=== PATIENT | female | born 1965 | race Caucasian/White ===

== ENCOUNTER 2017-01-07 09:46 | Emergency (ER) | payer MEDICARE, OTHER ==
[~2017-01-07] VITALS: Ht 154.9 cm; Wt 102.0 kg
[2017-01-07 09:57] VITALS: BP 182/128; PULSE 82; RESP 18; TEMP 98.2; O2SAT 97
[2017-01-07] MEDS ORDERED: LABETALOL HCL 100 MG/20 ML VIAL IV PUSH ONE (10:15)
[2017-01-07] MEDS ORDERED: METO25TA3 PO (10:17)
--- NOTE | 2017-01-07 10:20 | PD ---
HPI Chief Complaint: Hypertension Time Seen by Provider: 10:01 Travel History International Travel<30 days: No Contact w/Intl Traveler<30days: No Traveled to known affect area: No History of Present Illness HPI The patient was seen and examined in the presence of the nurse. This patient came to work this morning and was initially doing fine. At 9 AM, she reports feeling disoriented and jittery. No headache or head injury. She felt like her blood pressure was high. It is currently 211 systolic. Symptoms moderately severe. No alleviating factors. Duration 1 hour PFSH Past Medical History ?: Not Past Surgical History Hysterectomy: Yes Social History Alcohol Use: No Tobacco Use: No Substance Use: No Allergies-Medications (Allergen,Severity, Reaction): Coded Allergies: Contrast Media (Verified Allergy, Severe, Anaphylaxis, 01/07/17) Morphine (Verified Allergy, Severe, Anaphylaxis, 01/07/17) Reported Meds & Prescriptions Reported Meds & Active Scripts Active Reported Metoprolol Tartrate 25 Mg Tab 25 Mg PO BID Review of Systems General / Constitutional: No: Fever Eyes: No: Visual changes HENT: No: Headaches Cardiovascular: No: Chest Pain or Discomfort Respiratory: No: Shortness of Breath Gastrointestinal: No: Abdominal Pain Genitourinary: No: Dysuria Musculoskeletal: Positive: Weakness, No: Pain Skin: No Rash Neurologic: Positive: Weakness, Dizziness Psychiatric: Positive: Anxiety, No: Depression Endocrine: No: Polydipsia Hematologic/Lymphatic: No: Easy Bruising Physical Exam Narrative GENERAL: Well-nourished, well-developed patient who is anxious and jittery SKIN: Warm and dry. HEAD: Atraumatic. Normocephalic. EYES: Pupils equal and round. No scleral icterus. No injection or drainage. ENT: No nasal bleeding or discharge. Mucous membranes pink and moist. NECK: Trachea midline. No JVD. CARDIOVASCULAR: Regular rate and rhythm. No murmur appreciated. RESPIRATORY: No accessory muscle use. Clear to auscultation. Breath sounds equal bilaterally. GASTROINTESTINAL: Abdomen soft, non-tender, nondistended. Hepatic and splenic margins not palpable. MUSCULOSKELETAL: No obvious deformities. No clubbing. No cyanosis. No edema. NEUROLOGICAL: Awake and alert. No obvious cranial nerve deficits. Motor grossly within normal limits. Normal speech. PSYCHIATRIC: Anxious mood and affect; insight and judgment questionable. Data Data Last Documented VS Vital Signs Date Time Temp Pulse Resp B/P Pulse Ox O2 Delivery O2 Flow Rate FiO2 01/07/17 11:10 67 18 156/87 93 Room Air 01/07/17 09:57 98.2 Orders Iv Access Insert/Monitor (01/07/17 10:12) Complete Blood Count With Diff (01/07/17 10:12) Basic Metabolic Panel (Bmp) (01/07/17 10:12) Ct Brain W/O Iv Contrast(Rout) (01/07/17 ) Labetalol Inj (Trandate Inj) (01/07/17 10:15) [employer] Country Coach / Telemetry ROSEY.Q8H (01/07/17 10:12) Labs Laboratory Tests Test 01/07/17 10:20 White Blood Count 9.6 TH/MM3 Red Blood Count 4.50 MIL/MM3 Hemoglobin 13.1 GM/DL Hematocrit 39.9 % Mean Corpuscular Volume 88.6 FL Mean Corpuscular Hemoglobin 29.0 PG Mean Corpuscular Hemoglobin 32.8 % Concent Red Cell Distribution Width 13.3 % Platelet Count 364 TH/MM3 Mean Platelet Volume 8.4 FL Neutrophils (%) (Auto) 71.3 % Lymphocytes (%) (Auto) 24.1 % Monocytes (%) (Auto) 2.7 % Eosinophils (%) (Auto) 1.3 % Basophils (%) (Auto) 0.6 % Neutrophils # (Auto) 6.8 TH/MM3 Lymphocytes # (Auto) 2.3 TH/MM3 Monocytes # (Auto) 0.3 TH/MM3 Eosinophils # (Auto) 0.1 TH/MM3 Basophils # (Auto) 0.1 TH/MM3 CBC Comment DIFF FINAL Differential Comment Sodium Level 142 MEQ/L Potassium Level 3.8 MEQ/L Chloride Level 104 MEQ/L Carbon Dioxide Level 28.0 MEQ/L Anion Gap 10 MEQ/L Blood Urea Nitrogen 11 MG/DL Creatinine 0.76 MG/DL Estimat Glomerular Filtration 80 ML/MIN Rate Random Glucose 119 MG/DL Calcium Level 9.4 MG/DL [facility] Medical Decision Making Medical Screen Exam Complete: Yes Emergency Medical Condition: Yes Medical Record Reviewed: Yes Differential Diagnosis Hypertensive emergency, panic attack, CVA Narrative Course I have reviewed the patient's electronic medical record. IV placed I gave her 10 mg IV labetalol for hypertensive urgency given her systolic of [address] shows nothing emergent. We discussed the 9 mm calcified lesion that may be a benign meningioma. Recommended her doctor become involved and aware of that. CBC is normal Metabolic profile is normal Extended cardiac monitoring reveals sinus rhythm in the 70s Patient has no objective neurologic deficit to suggest CVA On recheck her blood pressure is 154/87 She feels improved No sign of CVA or meningitis Stable for outpatient follow-up Recommend she check and record her blood pressure daily and call her physician today for follow-up Diagnosis Primary Impression: Hypertensive urgency Additional Impressions: Disorientation, unspecified Anxiety Additional Instructions: The patient was advised to follow up with their physician and return if they worsen. Check and record blood pressure daily Med/Other Pt SpecificInfo: Other Disposition: 01 DISCHARGE HOME Condition: Stable Caden Eli MD Jan 07, 2017 10:19
[2017-01-07 10:21] VITALS: BP 211/96; PULSE 75; RESP 18; O2SAT 93
[2017-01-07 10:32] VITALS: BP 145/93; PULSE 69; RESP 18; O2SAT 94
[2017-01-07 10:35] LABS: AUTOMATED NEUTROPHIL # 6.8 TH/MM3 (1.8-7.7); BASOPHIL # 0.1 TH/MM3 (0-0.2); BASOPHIL % 0.6 % (0.0-2.0); EOSINOPHIL # 0.1 TH/MM3 (0-0.4); EOSINOPHIL % 1.3 % (0.0-4.0); HEMATOCRIT 39.9 % (35.0-46.0); LYMPH % 24.1 % (9.0-44.0); LYMPHOCYTE # 2.3 TH/MM3 (1.0-4.8); MEAN CELL VOLUME 88.6 FL (80.0-100.0); MEAN CORPUSCULAR HGB CONC 32.8 % (32.0-36.0); MONO % 2.7 % (0.0-8.0); NEUT % 71.3 % (16.0-70.0); PLATELET COUNT 364 TH/MM3 (150-450); RED CELL DISTRIBUTION WIDTH 13.3 % (11.6-17.2); WHITE BLOOD COUNT 9.6 TH/MM3 (4.0-11.0)
[2017-01-07 10:37] LABS: HEMO FLAGS DIFF FINAL
[2017-01-07 10:46] LABS: POTASSIUM 3.8 MEQ/L (3.5-5.1)
--- NOTE | 2017-01-07 10:53 | RADHPO ---
EXAM DATE/TIME: 01/07/2017 10:35 [facility] COMPARISON: No previous studies available for comparison. INDICATIONS : Altered mental status. RADIATION DOSE: 67.63 CTDIvol (mGy) MEDICAL HISTORY : None SURGICAL HISTORY : Hysterectomy. ENCOUNTER: Initial ACUITY: 1 day PAIN SCALE: 0/10 LOCATION: cranial TECHNIQUE: Multiple contiguous axial images were obtained of the head. Using automated exposure control and adj ustment of the mA and/or kV according to patient size, radiation dose was kept as low as reasonably a chievable to obtain optimal diagnostic quality images. FINDINGS: CEREBRUM: The ventricles are normal for age. No evidence of midline shift, mass lesion, hemorrhage or acute in farction. No extra-axial fluid collections are seen. POSTERIOR FOSSA: There is a 9 mm calcification in the expected region of the tentorium raising possibility of calcifie d meningioma. Outpatient MRI of the brain with and without contrast may be helpful for further evalua tion if clinically indicated. The 4th ventricle is midline. The cerebellopontine angle is unremarkab le. EXTRACRANIAL: The visualized portion of the orbits is intact. SKULL: The calvaria is intact. No evidence of skull fracture. CONCLUSION: 1. No acute intracranial abnormality. 2. 9 mm calcification in the expected region of the tentorium raising possibility of calcified mening ioma. Outpatient MRI of the brain with and without contrast may be helpful for further evaluation if clinically indicated. Aba Babb MD on January 07, 2017 at 10:47 Board Certified Radiologist. This report was verified electronically.
[2017-01-07 11:10] VITALS: BP 156/87; PULSE 67; RESP 18; O2SAT 93
[2017-01-07 12:35] VITALS: BP 154/86; PULSE 65; RESP 16; O2SAT 94
[2017-03-12] MEDS ORDERED: GABA100C4 PO (19:14)
[2017-03-12] MEDS ORDERED: SIMV5TAB3 PO (19:14)
[2017-03-12] MEDS ORDERED: FURO20TA PO (19:15)
== END 2017-01-07 13:36 | disposition home or self-care (01) ==
LOC: PHED 09:46
DX: I16.0 Hypertensive urgency (principal); F41.9 Anxiety disorder, unspecified
CPT/HCPCS: 70450; 80048; 85025; 96374

== ENCOUNTER 2017-03-12 23:59 | Observation (INO) | payer MEDICARE, OTHER ==
[~2017-03-12 23:59] MED LIST: FURO20TA PO; GABA100C4 PO; METO25TA3 PO; SIMV5TAB3 PO
[2017-03-13] VITALS (9 sets, daily range): BP systolic 136–201; BP diastolic 62–91; PULSE 54–66; RESP 16–20; TEMP 97.5–98.5; O2SAT 91–98
[2017-03-13] MEDS: SODIUM CHLOR 0.9% 1000 ML INJ 1,000 ML IV SCH ×2 (02:40→22:24)
[2017-03-13] MEDS ORDERED: CLON.5 PO (02:43)
[2017-03-13] MEDS ORDERED: CYMB60CA PO (02:43)
[2017-03-13] MEDS ORDERED: NALOXONE HCL 0.4 MG/ML AMP IV PRN (02:45)
[2017-03-13] MEDS ORDERED: SODIUM CHLORIDE 0.9% FLUSH 10 ML FLUSH IV FLUSH PRN (02:45)
[2017-03-13] MEDS ORDERED: ONDANSETRON HCL 4 MG/2 ML VIAL IVP PRN (02:45)
[2017-03-13] MEDS ORDERED: ACETAMINOPHEN 325 MG TAB PO PRN (02:45)
[2017-03-13] MEDS ORDERED: MAGNESIUM HYDROXIDE SUSP 30 ML CUP PO PRN (02:45)
[2017-03-13] MEDS ORDERED: BISACODYL 10 MG SUPP RECTAL PRN (02:45)
[2017-03-13] MEDS ORDERED: cloNIDine HCL 0.1 MG TAB PO PRN (07:30)
--- NOTE | 2017-03-13 08:50 | HHI.HP ---
HPI [facility] Primary [facility] Physician Non-Staff Admission Diagnosis Diagnoses: Chief Complaint: Chest pain Travel History International Travel<30 Days: No Contact w/Intl Traveler <30 Da: No History of Present Illness 51-year-old female with past medical history of HTN, HLD, anxiety/depression, thoracic aneurysm, JOSEPH who presented for chest pain shortness breath. The patient states that she was shopping yesterday and felt lightheaded like she was going to pass out, so she went home and made dinner. She states that then she had gradual worsening of right-sided chest discomfort that radiated to her right shoulder. She describes it as sharp and stabbing and associated with shortness of breath. She states her blood pressure was high at the time. She felt a gas-like pressure with associated nausea, and tried some [place] bailee to calm her stomach, denies any vomiting or abdominal pain. She reports a history of 4.1 cm thoracic aneurysm, 4.[address] in the ED. She had a positive d -dimer in the ED with a history of contrast allergy, so she was referred to the [facility] for VQ scan. The patient reports occasional leg swelling for which she takes Lasix, however she denies a history of CHF. She does report that she sleeps with 4 pillows at night, but states that this is because she has sleep apnea and does not use a CPAP. She denies any recent illness, fever, chills, cough, diarrhea. Review of Systems Except as stated in HPI: all other systems reviewed are Neg Past Family Social History Past Medical History Hypertension Hyperlipidemia Anxiety/depression Thoracic aneurysm History diverticulitis Sleep apnea off of CPAP Past Surgical History Hysterectomy Colonoscopy Reported Medications Klonopin (Clonazepam) 0.5 Mg Tab 0.5 Mg PO TID Cymbalta DR (Duloxetine HCl) 60 Mg Capdr 60 Mg PO DAILY Furosemide 20 Mg Tab 20 Mg PO BID Gabapentin 100 Mg Cap 100 Mg PO BID Simvastatin 5 Mg Tab 5 Mg PO DAILY Metoprolol Tartrate 25 Mg Tab 25 Mg PO BID Allergies: Coded Allergies: Contrast Media (Verified Allergy, Severe, Anaphylaxis, 03/12/17) Morphine (Verified Allergy, Severe, Anaphylaxis, 03/12/17) Active Ordered Medications Current Medications Medications (Trade) Dose Ordered Sig/Chaim Route Start Time Stop Time Status Last Admin (NS 1000 ml Inj) 1,000 ml @ 50 mls/hr Q20H IV 03/13/17 02:40 03/13/17 02:40 (NS Flush) 2 ml UNSCH PRN IV FLUSH 03/13/17 02:45 (NS Flush) 2 ml BID IV FLUSH 03/13/17 09:00 (Tylenol) 650 mg Q4H PRN PO 03/13/17 02:45 (Zofran Inj) 4 mg Q6H PRN IVP 03/13/17 02:45 (Lovenox Inj) 40 mg Q24H SQ 03/14/17 00:00 (Narcan Inj) 0.4 mg UNSCH PRN IV 03/13/17 02:45 (Milk Of Magnesia Liq) 30 ml Q12H PRN PO 03/13/17 02:45 (Dulcolax Supp) 10 mg DAILY PRN RECTAL 03/13/17 02:45 (Ecotrin Ec) 81 mg DAILY PO 03/13/17 09:00 (Cymbalta Dr) 60 mg DAILY PO 03/13/17 09:00 (Lasix) 20 mg BID PO 03/13/17 09:00 (Neurontin) 100 mg BID PO 03/13/17 09:00 (Lopressor) 25 mg BID PO 03/13/17 09:00 (Pravachol) 10 mg DAILY PO 03/13/17 09:00 (Catapres) 0.1 mg Q6H PRN PO 03/13/17 07:30 Family History Mother had CHF Father had alcohol liver problems Sr. had colon cancer Social History Smokes 2 cigarettes daily Denies any alcohol or drug use Physical Exam Vital Signs Vital Signs Date Time Temp Pulse Resp B/P Pulse Ox O2 Delivery O2 Flow Rate FiO2 03/13/17 06:37 180/81 03/13/17 02:39 98.5 54 18 201/91 95 Physical Exam GENERAL: Well-developed well-nourished. In no acute distress. SKIN: Warm and dry. No lesions noted. HEENT: Normocephalic. Pupils equal and round. Mucous membranes pink and moist. CARDIOVASCULAR: Regular rate and rhythm. No murmur appreciated. No chest wall TTP. RESPIRATORY: No accessory muscle use. Clear to auscultation. Breath sounds equal bilaterally. GASTROINTESTINAL: Abdomen soft, non-tender, nondistended. Bowel sounds x4. MUSCULOSKELETAL: No obvious deformities. No clubbing or cyanosis. No edema. No calf swelling or tenderness. NEUROLOGICAL: Awake and alert. No focal neurological deficits. Moves upper and lower extremities spontaneously. Normal speech. PSYCHIATRIC: Anxious mood and affect; insight and judgment normal. Laboratory Laboratory Tests Test 03/13/17 03:15 Troponin I LESS THAN 0.02 Assessment and Plan Assessment and Plan 51-year-old female with past medical history of HTN, HLD, anxiety/depression, thoracic aneurysm, JOSEPH who presented for chest pain shortness breath Chest pain/shortness of breath: Differential includes PE, ACS, CHF, pulmonary hypertension, uncontrolled BP, anxiety related Reviewed: Chest CT with stable 4.2 cm thoracic aneurysm. D-dimer 2.13. Troponin 0.022. EKG with no ischemic changes. -Check VQ scan -Trending cardiac enzymes -Echocardiogram -Continue metoprolol and statin -Started aspirin -Check lipid profile -Monitor on telemetry Hypertension: Accelerated. Heart rate 50s. Decrease metoprolol. Clonidine as needed. Monitor and adjust meds as needed. Anxiety/depression: Continue Cymbalta and Klonopin DVT prophylaxis: Lovenox Discussed Condition With Patient, RN, Dr. Gavin Attending Statement The exam, history, and the medical decision-making described in the above note were completed with the assistance of the mid-level provider. I reviewed and agree with the findings presented. I attest that I had a [id number] encounter with the patient on the same day, and personally performed and documented my assessment and findings in the medical record.patient seen and examined on date of service.patient anxious. chest pain suspicious for embolus. VQ scan ordered to rule out pulmonary embolism. Pancho Xiong March 13, 2017 08:50 Quinn Gavin MD Mar 17, 2017 07:26
[2017-03-13] MEDS ORDERED: METOPROLOL TARTRATE 25 MG TAB PO SCH (09:00)
[2017-03-13] MEDS: PRAVASTATIN SOD 10 MG TAB PO SCH (09:00)
[2017-03-13] MEDS: DULoxetine HCl DR 60 MG CAP PO SCH (09:29)
[2017-03-13] MEDS: SODIUM CHLORIDE 0.9% FLUSH 10 ML FLUSH IV FLUSH SCH ×2 (09:29→20:23)
[2017-03-13] MEDS: ASPIRIN EC 81 MG TABEC PO SCH (09:30)
[2017-03-13] MEDS: METOPROLOL TARTRATE 25 MG TAB PO SCH ×2 (09:31→20:25)
[2017-03-13] MEDS: GABAPENTIN 100 MG CAP PO SCH ×2 (09:32→20:25)
[2017-03-13] MEDS: FUROSEMIDE 20 MG TAB PO SCH ×2 (09:32→20:24)
[2017-03-13] MEDS: clonazePAM 0.5 MG TAB PO SCH ×3 (09:32→18:41)
--- NOTE | 2017-03-13 09:55 | RADRPT ---
EXAM DATE/TIME: 03/13/2017 09:37 [facility] COMPARISON: CT THORAX W/O CONTRAST, March 12, 2017, 22:25. INDICATIONS : Chest pain. MEDICAL HISTORY : None. SURGICAL HISTORY : None. ENCOUNTER: Subsequent ACUITY: 1 day PAIN SCORE: 0/10 LOCATION: Bilateral chest FINDINGS: Portable AP view of the chest demonstrates a normal-sized cardiac silhouette. No effusion, consolidat ion, or pneumothorax is visualized. The bones and soft tissues demonstrate no acute abnormality. EKG lines overlie the patient. CONCLUSION: No acute cardiopulmonary abnormality is identified. Obed Linton MD on March 13, 2017 at 9:52 Board Certified Radiologist. This report was verified electronically.
[2017-03-13 10:07] LABS: AUTOMATED NEUTROPHIL # 4.7 TH/MM3 (1.8-7.7); BASOPHIL # 0.1 TH/MM3 (0-0.2); BASOPHIL % 0.8 % (0.0-2.0); EOSINOPHIL # 0.2 TH/MM3 (0-0.4); EOSINOPHIL % 2.7 % (0.0-4.0); HEMATOCRIT 37.8 % (35.0-46.0); HEMO FLAGS DIFF FINAL; LYMPH % 39.4 % (9.0-44.0); LYMPHOCYTE # 3.6 TH/MM3 (1.0-4.8); MEAN CELL VOLUME 87.5 FL (80.0-100.0); MEAN CORPUSCULAR HEMOGLOBIN 29.9 PG (27.0-34.0); MEAN CORPUSCULAR HGB CONC 34.1 % (32.0-36.0); MONO % 5.5 % (0.0-8.0); NEUT % 51.6 % (16.0-70.0); PLATELET COUNT 347 TH/MM3 (150-450); RED BLOOD COUNT 4.32 MIL/MM3 (4.00-5.30); RED CELL DISTRIBUTION WIDTH 14.8 % (11.6-17.2); WHITE BLOOD COUNT 9.2 TH/MM3 (4.0-11.0)
[2017-03-13 10:37] LABS: ANION GAP 8 MEQ/L (5-15); BICARBONATE 27.3 MEQ/L (21.0-32.0); BLOOD UREA NITROGEN 12 MG/DL (7-18); CHLORIDE 106 MEQ/L (98-107); GLOMERULAR FILTRATION RATE 82 ML/MIN (>89); HDL CHOLESTEROL 37.1 MG/DL (40.0-60.0); LDL CHOLESTEROL 145 MG/DL (0-99); POTASSIUM 3.9 MEQ/L (3.5-5.1); SODIUM (NA) 141 MEQ/L (136-145)
--- NOTE | 2017-03-13 13:14 | RADRPT ---
EXAM DATE/TIME: 03/13/2017 12:31 [facility] COMPARISON: CHEST SINGLE AP, March 13, 2017, 9:37. INDICATIONS : Dyspnea with lightheadedness and elevated d-dimer. DOSE: 8.5 mCi Tc99m MAA IV 0.85 mCi Tc99m DTPA aerosol MEDICAL HISTORY : Hypertension. Thoracic aneurysm. SURGICAL HISTORY : Hysterectomy. ENCOUNTER: Initial ACUITY: 1 day PAIN SCALE: 0/10 LOCATION: Chest. TECHNIQUE: Following five minutes of tidal breathing of DTPA aerosol, planar images of the lungs were performed in eight projections. The patient was then injected with MAA, and eight-view perfusion scan was perf ormed. FINDINGS: There is a homogeneous pattern of aerosol delivery to the periphery of both lungs. No focal ventilat ory defects are seen. The perfusion lung scan demonstrates a homogenous pattern of uptake in both lungs. No segmental or s ubsegmental defects are seen. CONCLUSION: No ventilation/perfusion mismatch is identified. Examination is low probability for PE. Obed Linton MD on March 13, 2017 at 13:12 Board Certified Radiologist. This report was verified electronically.
--- NOTE | 2017-03-13 16:02 | EKG ---
Date Performed: 03/13/2017 Time Performed: 03:24:38 PTAGE: 51 years EKG: SINUS BRADYCARDIA When compared to previous tracing, heart rate is slower, Otherwise no sig nificant change. BORDERLINE ECG PREVIOUS TRACING : 03/12/2017 19.04.10 DOCTOR: Kenn Gasca Interpretating Date/Time 03/13/2017 16:00:21
--- NOTE | 2017-03-13 17:03 | EKG ---
Date Performed: 03/13/2017 Time Performed: 16:06:41 PTAGE: 51 years EKG: SINUS BRADYCARDIA BORDERLINE ECG NO SIGNIFICANT CHANGE FROM PRIOR ELECTROCARDIOGRAM. PREVIOUS TRACING : 03/13/2017 03.24 DOCTOR: Deuce Malagon Interpretating Date/Time 03/13/2017 17:02:50
--- NOTE | 2017-03-13 17:08 | EKG ---
Date Performed: 03/13/2017 Time Performed: 10:25:00 PTAGE: 51 years EKG: SINUS BRADYCARDIA BORDERLINE ECG NO SIGNIFICANT CHANGE FROM PRIOR ELECTROCARDIOGRAM. PREVIOUS TRACING : 03/12/2017 19.04 DOCTOR: Deuce Malagon Interpretating Date/Time 03/13/2017 17:07:22
--- NOTE | 2017-03-13 17:25 | EC ---
Study Study Date:03/13/2017 STUDY CONCLUSIONS SUMMARY - Procedure narrative: Transthoracic echocardiography. Image quality was good. Scanning was performed from the parasternal, apical, and subcostal acoustic windows. - Left ventricle: The cavity size was normal. Wall thickness was normal. Systolic function was normal. The estimated ejection fraction was in the range of 55% to 60%. Wall motion was normal; there were no regional wall motion abnormalities. - Aortic valve: Trace regurgitation. - Mitral valve: Trace regurgitation. If LV function is below 40, please consider prescribing an ACEI or ARB or document rationale for non-use. PROCEDURE DATA STUDY STATUS: Elective. Procedure: Transthoracic echocardiography. Image quality was good. Scanning was performed from the parasternal, apical, and subcostal acoustic windows. Study completion: The patient tolerated the procedure well. Transthoracic echocardiography. M-mode, complete 2D, complete spectral Doppler, and color Doppler. Height: Height: 61in. Weight: Weight: 229.5lb. Body mass index: BMI: 43.5kg/m^2. Body surface area: BSA: 2m^2. Patient status: Inpatient. CARDIAC ANATOMY LEFT VENTRICLE: The cavity size was normal. Wall thickness was normal. Systolic function was normal. The estimated ejection fraction was in the range of 55% to 60%. Wall motion was normal; there were no regional wall motion abnormalities. AORTIC VALVE: Trileaflet; normal thickness leaflets. Doppler: Transvalvular velocity was within the normal range. There was no stenosis. Trace regurgitation. Peak gradient: 14mm Hg (S). AORTA: Aortic root: The aortic root was normal in size. MITRAL VALVE: Structurally normal valve. Doppler: Transvalvular velocity was within the normal range. There was no evidence for stenosis. Trace regurgitation. LEFT ATRIUM: The atrium was normal in size. RIGHT VENTRICLE: The cavity size was normal. Wall thickness was normal. PULMONIC VALVE: Doppler: Transvalvular velocity was within the normal range. There was no evidence for stenosis. No regurgitation. TRICUSPID VALVE: Structurally normal valve. Doppler: Transvalvular velocity was within the normal range. No regurgitation. PULMONARY ARTERY: The main pulmonary artery was normal-sized. Systolic pressure was within the normal range. RIGHT ATRIUM: The atrium was normal in size. PERICARDIUM: There was no pericardial effusion. SYSTEMIC VEINS: Inferior vena cava: The vessel was normal in size. Patient weight: 229.5lb _Ejection fraction:_ 65-75% _Fractional shortening:_ 32% up to 5Kg 5-11.5Kg 11.6-22.9Kg 23-45Kg 45-57Kg Aortic Root 7-13 <17 13-22 17-27 17-27 LA diam 6-13 <23 24-38 33-47 37-40 RVID 10-17 7-15 7-15 7-18 8-17 LVIDd 12-22 <32 24-38 33-47 37-40 LVPW 2-4 3-6 5-7 6-8 7-8 IVS 2-4 3-6 5-7 6-8 7-8 BASIC MEASUREMENTS ADULT Normal Left ventricle LV internal dimension, ED, chordal level, *40.9 mm 43-52 PLAX LV internal dimension, ES, chordal level, 30.4 mm 23-38 PLAX Fractional shortening, chordal level, PLAX *26 % >29 LV posterior wall thickness, ED 7.06 mm IVS/LVPW ratio, ED *1.76 <1.3 Ventricular septum Septal thickness, ED 12.4 mm Aortic valve Leaflet separation 21 mm 15-26 Left atrium Anterior-posterior dimension 34 mm Anterior-posterior dimension index 1.7 cm/m^2 <2.2 Right ventricle RV internal dimension, ED, PLAX 20.6 mm 19-38 BASIC MEASUREMENTS ADULT Normal Aortic valve Leaflet separation 21 mm 15-26 Aorta Root diameter, ED 30 mm 20-37 DOPPLER MEASUREMENTS ADULT Normal Main pulmonary artery Pressure, S 30 mm Hg =30 Aortic valve Peak velocity, S 184 cm/s Peak gradient, S 14 mm Hg Mitral valve Peak E-wave velocity 63.2 cm/s Peak A-wave velocity 62.8 cm/s Peak E/A ratio 1 Tricuspid valve Regurgitant peak velocity 250 cm/s Peak RV-RA gradient, S 25 mm Hg Maximal regurgitant velocity 250 cm/s Systemic veins Estimated CVP 5 mm Hg Right ventricle RV pressure, S *30 mm Hg <30 LEGEND: Mean values are shown as u=mean value. Asterisk (*) goode values outside specified normal range. Prepared and signed by Les Jones [id number]
[2017-03-14] MEDS ORDERED: ENOXAPARIN SODIUM 40 MG/0.4 ML SYRINGE SQ SCH
[2017-03-14 04:19] VITALS: PULSE 56
[2017-03-14 04:29] VITALS: BP 140/71; PULSE 56; RESP 18; TEMP 98.5; O2SAT 94
[2017-03-14 05:52] LABS: AUTOMATED NEUTROPHIL # 4.7 TH/MM3 (1.8-7.7); BASOPHIL # 0.1 TH/MM3 (0-0.2); BASOPHIL % 0.6 % (0.0-2.0); EOSINOPHIL # 0.2 TH/MM3 (0-0.4); EOSINOPHIL % 2.7 % (0.0-4.0); HEMATOCRIT 37.2 % (35.0-46.0); HEMO FLAGS DIFF FINAL; LYMPH % 37.9 % (9.0-44.0); LYMPHOCYTE # 3.4 TH/MM3 (1.0-4.8); MEAN CELL VOLUME 88.3 FL (80.0-100.0); MEAN CORPUSCULAR HEMOGLOBIN 29.2 PG (27.0-34.0); MEAN CORPUSCULAR HGB CONC 33.1 % (32.0-36.0); MONO % 6.8 % (0.0-8.0); PLATELET COUNT 315 TH/MM3 (150-450); RED BLOOD COUNT 4.21 MIL/MM3 (4.00-5.30); RED CELL DISTRIBUTION WIDTH 14.5 % (11.6-17.2); WHITE BLOOD COUNT 9.1 TH/MM3 (4.0-11.0)
[2017-03-14 06:12] LABS: BICARBONATE 29.1 MEQ/L (21.0-32.0); POTASSIUM 3.8 MEQ/L (3.5-5.1)
[2017-03-14 08:00] VITALS: PULSE 60
[2017-03-14 08:06] VITALS: BP 135/80; PULSE 62; RESP 16; TEMP 97.8; O2SAT 95
[2017-03-14] MEDS ORDERED: AMLO5 PO (08:23)
[2017-03-14] MEDS ORDERED: SIMV10TA PO (08:23)
[2017-03-14] MEDS ORDERED: METO25TA3 PO (08:23)
[2017-03-14] MEDS ORDERED: ASPI-110 PO (08:23)
--- NOTE | 2017-03-14 08:26 | HHI.PR ---
Subjective Remarks Follow-up for chest pain and shortness of breath. The patient states the chest pain has improved. She does feel a little short of breath whenever she and is back from the restroom. She didn't sleep very well and had to sleep sitting up. She states that she had a sleep study done 2 years ago in [place] and was found to have mild sleep apnea, does not use CPAP. She states that her blood pressure frequently runs near 200 systolic, and 170 is low for her. She does have a PCP, and plans to follow-up. Objective Vitals Vital Signs Date Time Temp Pulse Resp B/P Pulse Ox O2 Delivery O2 Flow Rate FiO2 03/14/17 08:06 97.8 62 16 135/80 95 03/14/17 04:29 98.5 56 18 140/71 94 03/14/17 04:19 56 03/13/17 23:34 98.0 56 18 139/67 93 03/13/17 20:29 97.7 66 18 136/62 96 03/13/17 20:01 96 Nasal Cannula 2.00 03/13/17 15:48 97.8 60 20 148/70 98 03/13/17 14:11 160/64 03/13/17 12:08 97.5 56 16 192/86 91 03/13/17 09:17 96 21 I/O 03/13/17 03/13/17 03/13/17 03/14/17 03/14/17 03/14/17 07:00 15:00 23:00 07:00 15:00 23:00 Intake Total 0 ml 240 ml 720 ml Balance 0 ml 240 ml 720 ml Intake Oral 0 ml 240 ml 720 ml # Voids 1 2 2 Result Diagram: 03/14/17 0533 03/14/17 0533 Imaging Last Impressions Lung Scan-VQ Nuclear Medicine 03/13/17 0000 Signed Impressions: Service Date/Time: Monday, March 13, 2017 12:31 - CONCLUSION: No ventilation/perfusion mismatch is identified. Examination is low probability for PE. Obed Linton MD Chest X-Ray 03/13/17 0000 Signed Impressions: Service Date/Time: Monday, March 13, 2017 09:37 - CONCLUSION: No acute cardiopulmonary abnormality is identified. Obed Linton MD Objective Remarks GENERAL: Well-developed well-nourished. In no acute distress. SKIN: Warm and dry. No lesions noted. HEENT: Normocephalic. Pupils equal and round. Mucous membranes pink and moist. CARDIOVASCULAR: Regular rate and rhythm. No murmur appreciated. RESPIRATORY: No accessory muscle use. Clear to auscultation. Breath sounds equal bilaterally. GASTROINTESTINAL: Abdomen soft, non-tender, nondistended. Bowel sounds x4. MUSCULOSKELETAL: No obvious deformities. No clubbing or cyanosis. No edema. NEUROLOGICAL: Awake and alert. No focal neurological deficits. Moves upper and lower extremities spontaneously. Normal speech. PSYCHIATRIC: Slightly anxious mood and affect; insight and judgment normal. A/P Assessment and Plan 51-year-old female with past medical history of HTN, HLD, anxiety/depression, thoracic aneurysm, JOSEPH who presented for chest pain shortness breath Chest pain/shortness of breath: Suspect secondary to sleep apnea, uncontrolled BP, and anxiety Reviewed: Chest CT with stable 4.2 cm thoracic aneurysm. D-dimer 2.13. VQ scan with low probability for PE. Troponin 0.023. EKG with no ischemic changes. Echocardiogram with normal systolic function, EF 5560 %. -Continue metoprolol and statin -Started aspirin -Follow up with PCP for continued BP management -Recommend sleep study as outpatient Hypertension: Accelerated. Heart rate 50s. Decreased metoprolol. Added amlodipine. BP is much better controlled. Hyperlipidemia: On simvastatin 5 mg daily. Lipid panel reviewed with high triglycerides, high LDL, low HDL. Increase statin. Anxiety/depression: Continue Cymbalta and Klonopin DVT prophylaxis: Lovenox Discharge Planning Discharge patient to home Condition on discharge: Improved Heart healthy Diet as tolerated Regular activity Rx written: Aspirin, metoprolol, amlodipine, simvastatin Follow-up with primary care physician Pancho Xiong March 14, 2017 08:26
[2017-03-14] MEDS ORDERED: amLODIPine BESYLATE 5 MG TAB PO SCH (09:00)
[2017-03-14] MEDS: PRAVASTATIN SOD 10 MG TAB PO SCH (09:00)
[2017-03-14] MEDS: clonazePAM 0.5 MG TAB PO SCH (09:16)
[2017-03-14] MEDS: METOPROLOL TARTRATE 25 MG TAB PO SCH (09:16)
[2017-03-14] MEDS: SODIUM CHLORIDE 0.9% FLUSH 10 ML FLUSH IV FLUSH SCH (09:17)
[2017-03-14] MEDS: FUROSEMIDE 20 MG TAB PO SCH (09:17)
[2017-03-14] MEDS: GABAPENTIN 100 MG CAP PO SCH (09:17)
[2017-03-14] MEDS: DULoxetine HCl DR 60 MG CAP PO SCH (09:17)
[2017-03-14] MEDS: ASPIRIN EC 81 MG TABEC PO SCH (09:17)
== END 2017-03-14 10:55 | disposition home or self-care (01) ==
LOC: NEDDLT 23:59 → NEPFCDU 03-13 02:28 → UNDODISOB 03-14 10:55
PROVIDERS: ADMIT Internal Medicine; ATTEND Internal Medicine
DX: R07.89 Other chest pain (principal); R06.02 Shortness of breath; I10 Essential (primary) hypertension; F41.9 Anxiety disorder, unspecified; F32.9 Major depressive disorder, single episode, unspecified; G47.33 Obstructive sleep apnea (adult) (pediatric); E78.5 Hyperlipidemia, unspecified; F17.210 Nicotine dependence, cigarettes, uncomplicated; I71.2 Thoracic aortic aneurysm, without rupture; Z91.041 Radiographic dye allergy status; Z88.5 Allergy status to narcotic agent
CPT/HCPCS: 71010; 71250; 78582; 80048; 80061; 82550; 82552; 84443; 84484; 85007; 85025; 85027; 85379; 93005; 93306; 96372; 96374; 99285; A9540; A9567; G0378; J1650; J2060; J2405; J7030

== ENCOUNTER 2017-08-29 22:55 | Observation (INO) | payer MEDICARE, OTHER ==
[~2017-08-29 22:55] MED LIST changes: +AMLO5 PO; +ASPI1TAB57 PO; +CLON.5 PO; +CYMB60CA PO; +SIMV10TA PO; -SIMV5TAB3 PO
[2017-08-29] MEDS ORDERED: ACETAMINOPHEN 500 MG CPLT PO PRN (23:45)
[2017-08-29] MEDS ORDERED: MORPHINE SULFATE 4 MG/ML INJ IV PUSH PRN (23:45)
[2017-08-29] MEDS ORDERED: ONDANSETRON HCL 4 MG/2 ML VIAL IV PUSH PRN (23:45)
[2017-08-29] MEDS ORDERED: SODIUM CHLORIDE 0.9% FLUSH 10 ML FLUSH IV FLUSH PRN (23:45)
--- NOTE | 2017-08-30 00:03 | HHI.HP ---
[facility] Unknown Admission Diagnosis Diagnoses: Travel History International Travel<30 Days: No Contact w/Intl Traveler <30 Da: No Traveled to Known Affected Are: No History of Present Illness 52-year-old female with a past medical history significant for hypertension, history of a 4.2 cm thoracic aortic aneurysm and anxiety presents with sharp, shooting chest pain and shortness of breath since 1 PM. The patient states she was diagnosed with a thoracic aortic aneurysm 5 [address] [place] done on 02/2017 shows a ascending aorta measuring 4.2 cm. 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 She reports that she had a TIA 1 month ago and her workup including an echocardiogram was within normal limits. The patient reports the pain is substernal and radiates across her chest. She states it is worse when she leans forward. She endorses shortness of breath that is worse when she is ambulating or lying flat. EKG showed sinus rhythm without any ST changes. Initial troponin negative. Echo done 02/2017 showed an EF of 55-60%. Review of Systems Denies fever or chills Denies blurry vision, otorrhea, rhinorrhea Denies sore throat and cough Positive chest pain, shortness of breath No abdominal pain Denies constipation/diarrhea/nausea/vomiting Denies muscle pain/weakness No rashes Past Family Social History Past Medical History Thoracic aortic aneurysm Hypertension Diverticulosis Anxiety Past Surgical History Hysterectomy Reported Medications Reported Meds & Active Scripts Active Aspirin 81 (Aspirin) 81 Mg Tabdr 81 Mg PO DAILY Metoprolol Tartrate 25 Mg Tab 12.5 Mg PO BID Norvasc (Amlodipine Besylate) 5 Mg Tab 5 Mg PO DAILY Reported Furosemide 20 Mg Tab 20 Mg PO BID Gabapentin 100 Mg Cap 100 Mg PO BID Allergies: Coded Allergies: diatrizoate meglumine (Unverified Allergy, Severe, Anaphylaxis, 08/29/17) gadobenic acid (Unverified Allergy, Severe, Anaphylaxis, 08/29/17) gadodiamide (Unverified Allergy, Severe, Anaphylaxis, 08/29/17) gadoteridol (Unverified Allergy, Severe, Anaphylaxis, 08/29/17) iodixanol (Unverified Allergy, Severe, Anaphylaxis, 08/29/17) iohexol (Unverified Allergy, Severe, Anaphylaxis, 08/29/17) morphine (Unverified Allergy, Severe, Anaphylaxis, 08/29/17) Family History Mother of CHF. Father of colon cancer. Social History Quit smoking 3 weeks ago, prior to that smoked 1-2 cigarettes per day since her teenage years. Denies alcohol and illicit drugs. Physical Exam Physical Exam GENERAL: female lying in bed SKIN: No rashes, ecchymoses or lesions. Cool and dry. HEAD: Atraumatic. Normocephalic. No temporal or scalp tenderness. EYES: Pupils equal round and reactive. Extraocular motions intact. No scleral icterus. No injection or drainage. ENT: Nose without bleeding, purulent drainage or septal hematoma. Throat without erythema, tonsillar hypertrophy or exudate. Uvula midline. Airway patent. NECK: Trachea midline. No JVD or lymphadenopathy. Supple, nontender, no meningeal signs. CARDIOVASCULAR: Regular rate and rhythm without murmurs, gallops, or rubs. RESPIRATORY: Clear to auscultation. Breath sounds equal bilaterally. No wheezes , rales, or rhonchi. GASTROINTESTINAL: Abdomen soft, non-tender, nondistended. No hepato-splenomegaly , or palpable masses. No guarding. MUSCULOSKELETAL: Extremities without clubbing, cyanosis, or edema. No joint tenderness, effusion, or edema noted. No calf tenderness. NEUROLOGICAL: Awake and alert. Cranial nerves II through XII intact. Motor and sensory grossly within normal limits. Normal speech. Caprini VTE Risk Assessment Caprini VTE Risk Assessment: No/Low Risk (score <= 1) Caprini Risk Assessment Model Point Value = 1 Point Value = 2 Point Value = 3 Point Value = 5 Age 41-60 Minor surgery BMI > 25 kg/m2 Swollen legs Varicose veins or History of unexplained or recurrent spontaneous Oral contraceptives or hormone replacement Sepsis (< 1 month) Serious lung disease, including pneumonia (< 1 month) Abnormal pulmonary function Acute myocardial infarction Congestive heart failure (< 1 month) History of inflammatory bowel disease Medical patient at bed rest Age 61-74 Arthroscopic surgery Major open surgery (> 45 min) Laparoscopic surgery (> 45 min) Malignancy Confined to bed (> 72 hours) Immobilizing plaster cast Central venous access Age >= 75 History of VTE Family history of VTE Factor V Leiden Prothrombin [id number] Lupus anticoagulant Anticardiolipin antibodies Elevated serum homocysteine Heparin-induced thrombocytopenia Other congenital or acquired thrombophilia Stroke (< 1 month) Elective arthroplasty Hip, pelvis, or leg fracture Acute spinal cord injury (< 1 month) Prophylaxis Regimen Total Risk Factor Score Risk Level Prophylaxis Regimen 0-1 Low Early ambulation 2 Moderate Order ONE of the following: *Sequential Compression Device (SCD) *Heparin 5000 units SQ BID 3-4 Higher Order ONE of the following medications: *Heparin 5000 units SQ TID *Enoxaparin/Lovenox 40 mg SQ daily (WT < 150 kg, CrCl > 30 mL/min) *Enoxaparin/Lovenox 30 mg SQ daily (WT < 150 kg, CrCl > 10-29 mL/min) *Enoxaparin/Lovenox 30 mg SQ BID (WT < 150 kg, CrCl > 30 mL/min) AND/OR *Sequential Compression Device (SCD) 5 or more Highest Order ONE of the following medications: *Heparin 5000 units SQ TID (Preferred with Epidurals) *Enoxaparin/Lovenox 40 mg SQ daily (WT < 150 kg, CrCl > 30 mL/min) *Enoxaparin/Lovenox 30 mg SQ daily (WT < 150 kg, CrCl > 10-29 mL/min) *Enoxaparin/Lovenox 30 mg SQ BID (WT < 150 kg, CrCl > 30 mL/min) AND *Sequential Compression Device (SCD) Assessment and Plan Assessment and Plan 52-year-old female with past medical history of hypertension, thoracic aortic aneurysm and anxiety presents with new onset chest pain and shortness of breath. 1. Chest pain/shortness of breath ACS rule out pending Initial EKG showed sinus rhythm without ST changes Initial troponin negative Nitroglycerin, morphine for chest pain D-dimer pending to rule out DVT If d-dimer elevated, will obtain VQ scan - patient with anaphylactic reaction to IV contrast 2. History of thoracic aortic aneurysm CT chest done in February 2017 showed 4. 2cm ascending aorta Patient medically managed with metoprolol Sees a network infrastructure architect in [place], last appointment 1 month ago ECHO done 02/2017 with EF 60-65% Continue medical management 3. Hypertension Continue home medications FEN Heart healthy diet Electrolytes: monitor and replete prn Heparin Ness Wilson MD Aug 30, 2017 00:03
[2017-08-30 00:28] VITALS: BP 167/80; PULSE 60; RESP 18; TEMP 98.2; O2SAT 96
[2017-08-30] MEDS ORDERED: PILL SPLITTER OTHER PRN (00:30)
[2017-08-30 01:38] LABS: CREATINE KINASE 57 U/L (26-192)
[2017-08-30 03:22] VITALS: BP 132/72; PULSE 74; RESP 18; TEMP 98.5; O2SAT 96
[2017-08-30] MEDS ORDERED: KETOROLAC TROMETHAMINE 30 MG/ML (IVP) VIAL IV PUSH ONE (03:45)
[2017-08-30] MEDS: NITROGLYCERIN 2% OINT 1 GM PACKET TOP SCH ×3 (05:45→11:58)
[2017-08-30 07:01] LABS: AUTOMATED NEUTROPHIL # 7.9 TH/MM3 (1.8-7.7); BASOPHIL # 0.1 TH/MM3 (0-0.2); BASOPHIL % 0.5 % (0.0-2.0); EOSINOPHIL # 0.2 TH/MM3 (0-0.4); EOSINOPHIL % 1.3 % (0.0-4.0); HEMO FLAGS DIFF FINAL; LYMPH % 28.2 % (9.0-44.0); LYMPHOCYTE # 3.5 TH/MM3 (1.0-4.8); MEAN CELL VOLUME 90.2 FL (80.0-100.0); MEAN CORPUSCULAR HEMOGLOBIN 30.8 PG (27.0-34.0); MEAN CORPUSCULAR HGB CONC 34.1 % (32.0-36.0); MONO % 6.2 % (0.0-8.0); NEUT % 63.8 % (16.0-70.0); PLATELET COUNT 344 TH/MM3 (150-450); RED BLOOD COUNT 3.99 MIL/MM3 (4.00-5.30); RED CELL DISTRIBUTION WIDTH 14.2 % (11.6-17.2); WHITE BLOOD COUNT 12.4 TH/MM3 (4.0-11.0)
[2017-08-30 07:26] LABS: CREATINE KINASE 48 U/L (26-192)
[2017-08-30 08:31] LABS: POTASSIUM 3.8 MEQ/L (3.5-5.1)
[2017-08-30 08:50] VITALS: BP 125/64; PULSE 56; RESP 18; TEMP 97.5; O2SAT 97
[2017-08-30] MEDS ORDERED: METOPROLOL TARTRATE 25 MG TAB PO SCH (09:00)
[2017-08-30] MEDS ORDERED: amLODIPine BESYLATE 5 MG TAB PO SCH (09:00)
[2017-08-30] MEDS ORDERED: GABAPENTIN 100 MG CAP PO SCH (09:00)
[2017-08-30] MEDS ORDERED: ASPIRIN EC 81 MG TABEC PO SCH (09:00)
[2017-08-30] MEDS ORDERED: FUROSEMIDE 20 MG TAB PO SCH (09:00)
[2017-08-30] MEDS ORDERED: PRAVASTATIN SOD 20 MG TAB PO SCH (09:00)
[2017-08-30] MEDS ORDERED: SODIUM CHLORIDE 0.9% FLUSH 10 ML FLUSH IV FLUSH SCH (09:00)
--- NOTE | 2017-08-30 10:52 | RADRPT ---
EXAM DATE/TIME: 08/30/2017 10:18 [place] COMPARISON: CHEST PA & LAT, August 29, 2017, 18:58. LUNG VENTILATION & PERFUSION SCAN, March 13, 2017, 12:31. INDICATIONS : Substernal chest pain. DOSE: 8.5 mCi Tc99m MAA IV 0.76 mCi Tc99m DTPA aerosol MEDICAL HISTORY : Hypertension. Stroke SURGICAL HISTORY : None. ENCOUNTER: Initial ACUITY: 1 day PAIN SCALE: 3/10 LOCATION: Bilateral chest TECHNIQUE: Following five minutes of tidal breathing of DTPA aerosol, planar images of the lungs were performed in eight projections. The patient was then injected with MAA, and eight-view perfusion scan was perf ormed. FINDINGS: There is a homogeneous pattern of aerosol delivery to the periphery of both lungs. No focal ventilat ory defects are seen. The perfusion lung scan demonstrates a homogenous pattern of uptake in both lungs. No segmental or s ubsegmental defects are seen. CONCLUSION: No ventilation/perfusion mismatches are identified. Examination is low probability for PE. Obed Linton MD on August 30, 2017 at 10:49 Board Certified Radiologist. This report was verified electronically.
[2017-08-30] MEDS ORDERED: PANTOPRAZOLE SOD 40 MG DELAYED RELEASE TAB PO ONE (11:00)
[2017-08-30 12:51] VITALS: PULSE 64
[2017-08-30 13:07] VITALS: BP 129/72; PULSE 75; RESP 16; TEMP 98.6; O2SAT 96
[2017-08-30] MEDS ORDERED: PANT40TA3 PO (13:50)
--- NOTE | 2017-08-30 13:53 | HHI.DCPOC ---
Discharge Care Plan Diagnosis: (1) Atypical chest pain Goals to Promote Your Health * To prevent worsening of your condition and complications * To maintain your health at the optimal level Directions to Meet Your Goals Take your medications as prescribed Follow your dietary instruction Follow activity as directed Keep your appointments as scheduled Take your immunizations and boosters as scheduled If your symptoms worsen call your PCP, if no PCP go to Urgent Care Center or Emergency Room Smoking is Dangerous to Your Health. Avoid second hand smoke Call the 24-hour hour crisis hotline for domestic abuse at Becca Escobar Aug 30, 2017 13:53
[2017-08-30 14:48] VITALS: PULSE 59
--- NOTE | 2017-08-30 16:05 | HHI.PR ---
Subjective Remarks Follow-up chest pain. Patient reports of intermittent pleuritic retrosternal pain with burning sensation on the left shoulder. History of hiatal hernia. Patient had a negative stress test a month ago and a chest CT showing 4.2 thoracic aneurysm. She also appears anxious. Discussed with RN Objective Vitals Vital Signs Date Time Temp Pulse Resp B/P (MAP) Pulse Ox O2 Delivery O2 Flow Rate FiO2 08/30/17 14:48 59 08/30/17 13:07 98.6 75 16 129/72 (91) 96 08/30/17 12:51 64 08/30/17 08:50 97.5 56 18 125/64 (84) 97 08/30/17 06:31 Nasal Cannula 2.00 08/30/17 03:22 98.5 74 18 132/72 (92) 96 08/30/17 00:28 98.2 60 18 167/80 (109) 96 Result Diagram: 08/30/17 0527 08/30/17 0527 Imaging Last Impressions Lung Scan-VQ Nuclear Medicine 08/30/17 0000 Signed Impressions: Service Date/Time: Wednesday, August 30, 2017 10:18 - CONCLUSION: No ventilation/perfusion mismatches are identified. Examination is low probability for PE. Obed Linton MD Objective Remarks GENERAL: female lying in bed SKIN: No rashes, ecchymoses or lesions. Cool and dry. CARDIOVASCULAR: Regular rate and rhythm without murmurs, gallops, or rubs. RESPIRATORY: Clear to auscultation. Breath sounds equal bilaterally. No wheezes , rales, or rhonchi. GASTROINTESTINAL: Abdomen soft, non-tender, nondistended. No guarding. MUSCULOSKELETAL: Extremities without clubbing, cyanosis, or edema. No joint tenderness, effusion, or edema noted. No calf tenderness. NEUROLOGICAL: Awake and alert. Cranial nerves II through XII intact. Motor and sensory grossly within normal limits. Normal speech. Procedures None A/P Problem List: (1) Atypical chest pain ICD Code: R07.89 - Atypical chest pain Status: Acute Assessment and Plan 52-year-old female with past medical history of hypertension, thoracic aortic aneurysm and anxiety presents with new onset chest pain and shortness of breath. 1. Chest pain/shortness of breath ACS ruled out. Negative stress test a month ago D-dimer elevated but negative VQ scan I believe her atypical chest pain is related to GERD compounded by anxiety. Start PPI. Antireflux mechanisms discussed with the patient 2. History of thoracic aortic aneurysm CT chest recently showed 4. 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 Hypertension Continue home medications FEN Heart healthy diet Electrolytes: monitor and replete prn Heparin Discharge Planning Discharge patient to home Condition on discharge: Improved Regular Diet as tolerated Ad Wanda activity no driving Rx written: Protonix Follow-up with primary care physician Roshan Kiser MD Aug 30, 2017 16:05
--- NOTE | 2017-08-30 17:21 | EKG ---
Date Performed: 08/30/2017 Time Performed: 03:18:25 PTAGE: 52 years EKG: Sinus rhythm NORMAL ECG Since PREVIOUS TRACING , no significant change noted PREVIOUS TRACIN08/30/2017 00.34 DOCTOR: Alda Pena Interpretating Date/Time 08/30/2017 17:19:32
--- NOTE | 2017-08-30 17:22 | EKG ---
Date Performed: 08/30/2017 Time Performed: 00:34:12 PTAGE: 52 years EKG: SINUS BRADYCARDIA BORDERLINE ECG Since PREVIOUS TRACING , no significant change noted PREVIOUS TRACIN03/13/2017 16.06 DOCTOR: Alda Pena Interpretating Date/Time 08/30/2017 17:19:55
[2017-08-31] MEDS ORDERED: HEPARIN SODIUM - SQ 10,000 UNITS/ML VIAL SQ SCH
[2017-08-31] MEDS ORDERED: PANTOPRAZOLE SOD 40 MG DELAYED RELEASE TAB PO SCH (09:00)
== END 2017-08-30 16:03 | disposition home or self-care (01) ==
LOC: NEDDLT 22:55 → NEPGCP 23:05
PROVIDERS: ADMIT Internal Medicine; ATTEND Internal Medicine
DX: R07.2 Precordial pain (principal); I10 Essential (primary) hypertension; R06.02 Shortness of breath; F41.9 Anxiety disorder, unspecified; Z87.891 Personal history of nicotine dependence
CPT/HCPCS: 71020; 78582; 80048; 82550; 83880; 84484; 85025; 85379; 85610; 85730; 93005; 96374; 99285; A9540; A9567; G0378; J1885